=== PATIENT | male | born 1940 | race Caucasian/White ===

== ENCOUNTER 2022-08-30 04:53 | Inpatient (IN) | payer MEDICARE, BC ==
[~2022-08-30] VITALS: Ht 177.8 cm; Wt 113.4 kg
--- NOTE | 2022-08-30 05:00 | NUR ---
Pt is noted responsive but forgetful as she is brought in by ems due to Mechanical Fall at home as he was unable to pickup himselfg back up afterwords. Pt has a history off stroke and currently has COVID19. Pt care continue as awaits MD orders.
[2022-08-30] MEDS ORDERED: TERA5CAP4 PO (05:07)
[2022-08-30] MEDS ORDERED: LOSA25TA27 PO (05:07)
[2022-08-30] MEDS ORDERED: AMLO-212 PO (05:07)
[2022-08-30] MEDS ORDERED: LEVO25TA9 PO (05:07)
[2022-08-30] MEDS ORDERED: ATOR10TA PO (05:07)
[2022-08-30] MEDS ORDERED: ALLO100T56 PO (05:07)
[2022-08-30] MEDS ORDERED: CLOP75TA33 PO (05:07)
[2022-08-30] MEDS ORDERED: ASPI81TA31 PO (05:07)
[2022-08-30] MEDS ORDERED: TDAP DIPH,PERTUSS,TET VAC/PF 0.5 ML DISP.SYRIN IM ONE ×2 (05:13→05:15)
[2022-08-30 05:22] LABS: HEMATOCRIT 42.1 % (36.7-47.1); MEAN CORPUSCULAR HEMOGLOBIN 31.5 uug (23.8-33.4); MEAN CORPUSCULAR VOLUME 92.8 fL (73.0-96.2); PLATELET COUNT (AUTO) 113 K/uL (152-348)
[2022-08-30 05:47] LABS: ALANINE AMINOTRANSFERASE 28 U/L (16-63); ALKALINE PHOSPHATASE 84 U/L (50-136); ASPARTATE AMINOTRANSFERASE 30 U/L (15-37); BILIRUBIN,DIRECT 0.3 mg/dL (0.0-0.2); CARBON DIOXIDE 24 mmol/L (21-32); CHLORIDE 100 mmol/L (98-107); CREATININE 1.9 mg/dL (0.6-1.3); POTASSIUM 3.4 mmol/L (3.5-5.1); UREA NITROGEN, BLOOD 22 mg/dL (7-18)
--- NOTE | 2022-08-30 06:05 | NUR ---
Pt is noted off the unit to CT.
[2022-08-30] MEDS ORDERED: ENOXAPARIN SODIUM 100 MG/ML DISP.SYRIN SQ ONE ×2 (06:15→08:00)
--- NOTE | 2022-08-30 06:25 | NUR ---
Pt is noted back from CT . Pt care continue.
--- NOTE | 2022-08-30 07:10 | NUR ---
Patient is resting comfortably in bed with eyes closed, NAD noted-
--- NOTE | 2022-08-30 07:23 | NUR ---
Pt care continue as report is given to the AM receiving nurse.
--- NOTE | 2022-08-30 08:10 | NUR ---
Breakfast tray provided, ate w/ good appettite. Paged Dr Soria for admit. Awaiting call back.
[2022-08-30] MEDS ORDERED: ASPIRIN 81 MG TAB.CHEW PO ONE (08:15)
[2022-08-30] MEDS ORDERED: ASPIRIN 81 MG TAB.CHEW ONE (08:17)
[2022-08-30] MEDS ORDERED: ENOXAPARIN SODIUM 80 MG/0.8 ML DISP.SYRIN SQ ONE (08:17)
[2022-08-30] MEDS ORDERED: ENOXAPARIN SODIUM 30 MG/0.3 ML DISP.SYRIN ONE (08:17)
--- NOTE | 2022-08-30 09:22 | NUR ---
Dr Waters spoke to Dr Soria for TELE admit.
--- NOTE | 2022-08-30 10:05 | NUR ---
PATIENT RECEIVED FROM ED BY JOHN TO ROOM 324 WITH DX OF POSITIVE COVID AND ELEVATED TROPONIN PLACED INTO BED FIXED AND MADE COMFORTABLE PATIENT IS VERY QUIET BUT IS ALERT FORGETFUL AND COOPERATIVE HE IS ON O2 AT 2L/M BY NASAL CANULA WITH NO SOB AT THIS TIME RIGHT FOREARM WITH HEPLOCK INTACT WITH NO S/S OF INFILTERATION AT THIS TIME.ORIENTED TO ROOM AND FACILITY PROTOCOL ON COVID ISOLATION AT THIS TIME EDUCATED AND INSTRUCTED ON COVID ISOLATION AND HE EXPRESSED UNDERSTANDING.
[2022-08-30 10:35] VITALS: BP 102/63; TEMP 97.7; O2SAT 97
[2022-08-30] MEDS ORDERED: MORPHINE SULFATE 2 MG/1 ML DISP.SYRIN IV PRN (11:15)
[2022-08-30] MEDS ORDERED: TEMAZEPAM 15 MG CAPSULE PO PRN (11:15)
[2022-08-30] MEDS ORDERED: ONDANSETRON 4 MG/2 ML VIAL IV PRN (11:15)
[2022-08-30] MEDS ORDERED: ACETAMINOPHEN 325 MG TABLET PO PRN (11:15)
[2022-08-30] MEDS ORDERED: TEMAZEPAM 7.5 MG CAPSULE PO PRN (12:15)
[2022-08-30] MEDS: DEXAMETHASONE 4 MG TABLET PO SCH (14:15)
[2022-08-30] MEDS: POTASSIUM CHLORIDE 20 MEQ in IV 1/2NS 1000 ML 1,000 ML IV PRN (14:17)
[2022-08-30] MEDS ORDERED: REMDESIVIR (CHARGED) 200 MG in IV NORMAL SALINE 210 ML IV ONE (16:00)
--- NOTE | 2022-08-30 16:34 | NUR ---
REMDESIVIR STATED ORDERED WITH NO ADVERSE OR ALLERGIC REACTIONS AT THIS TIME.
[2022-08-30 16:52] VITALS: BP 152/86; TEMP 97.9; O2SAT 98
[2022-08-30] MEDS ORDERED: LOSA100T31 PO (17:14)
[2022-08-30] MEDS ORDERED: LEVO125T8 PO (17:15)
[2022-08-30] MEDS ORDERED: ALLO300T2 PO (17:16)
[2022-08-30] MEDS ORDERED: ATOR40TA PO (17:23)
[2022-08-30 17:34] VITALS: BP 141/67; TEMP 97.1; O2SAT 97
--- NOTE | 2022-08-30 18:00 | NUR ---
REMAIN ON COVID ISOLATION ORDERED WITH O2 WITH NO SOB AT THIS TIME.
--- NOTE | 2022-08-30 19:30 | NUR ---
Received patient on bed in upright position. AAOX4. 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 Denies any pain or SOB. No coughing noted. COVID precaution observe. IV site on right FA intact and patent. IVF infusing. Safety measure initiated and call light within reached.
[2022-08-30] MEDS: ATORVASTATIN 40 MG TABLET PO SCH (20:41)
[2022-08-30] MEDS: DOCUSATE SODIUM 100 MG CAPSULE PO SCH (20:41)
[2022-08-30] MEDS: TERAZOSIN 5 MG CAPSULE PO SCH (20:42)
[2022-08-30] MEDS ORDERED: ALLOPURINOL 300 MG TABLET PO SCH (21:00)
[2022-08-30] MEDS ORDERED: ATORVASTATIN 10 MG TABLET PO SCH (21:00)
[2022-08-30] MEDS ORDERED: DOCUSATE SODIUM 250 MG CAPSULE PO SCH (21:00)
[2022-08-30 21:21] VITALS: BP 162/96; TEMP 98; O2SAT 98
[2022-08-31 00:16] VITALS: BP 152/86; TEMP 98.4; O2SAT 98
[2022-08-31] MEDS: POTASSIUM CHLORIDE 20 MEQ in IV 1/2NS 1000 ML 1,000 ML IV PRN ×2 (03:37→17:06)
[2022-08-31] MEDS: PANTOPRAZOLE SODIUM 40 MG TABLET.DR PO SCH (06:04)
[2022-08-31] MEDS: LEVOTHYROXINE SODIUM 125 MCG TABLET PO SCH (06:04)
--- NOTE | 2022-08-31 06:33 | NUR ---
Patient with sporadic cough, unable to expectorate any phlegm at this time. Remains on O2 at 2LPM via NC in place. IVF continue to infuse. Needs attended to and met. COVID precaution maintained. Safety measure maintained and call light within reached.
--- NOTE | 2022-08-31 06:49 | NUR ---
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
[2022-08-31 06:55] LABS: HEMATOCRIT 41.7 % (36.7-47.1); MEAN CORPUSCULAR HEMOGLOBIN 31.6 uug (23.8-33.4); MEAN CORPUSCULAR VOLUME 92.5 fL (73.0-96.2); PLATELET COUNT (AUTO) 125 K/uL (152-348)
[2022-08-31 07:21] LABS: THYROID STIMULATING HORMONE 0.209 mIU/mL (0.358-3.740)
[2022-08-31 07:36] LABS: ALANINE AMINOTRANSFERASE 24 U/L (16-63); ALKALINE PHOSPHATASE 77 U/L (50-136); ASPARTATE AMINOTRANSFERASE 25 U/L (15-37); BILIRUBIN,TOTAL 0.5 mg/dL (0.2-1.0); CARBON DIOXIDE 23 mmol/L (21-32); CHLORIDE 103 mmol/L (98-107); CHOLESTEROL 120 mg/dL (<200); CREATININE 1.8 mg/dL (0.6-1.3); FERRITIN 209 ng/mL (26-388); HDL CHOLESTEROL 51 mg/dL (40-60); LACTATE DEHYDROGENASE 143 U/L (85-227); MAGNESIUM 1.9 mg/dL (1.8-2.4); PHOSPHOROUS 4.4 mg/dL (2.5-4.9); POTASSIUM 4.3 mmol/L (3.5-5.1); TOTAL PROTEIN, SERUM 7.6 g/dL (6.4-8.2); TRIGLYCERIDES 67 MG/DL (30-150); UREA NITROGEN, BLOOD 29 mg/dL (7-18)
[2022-08-31] MEDS ORDERED: LEVOTHYROXINE SODIUM 25 MCG TABLET PO SCH (09:00)
[2022-08-31] MEDS: DEXAMETHASONE 4 MG TABLET PO SCH (09:18)
[2022-08-31] MEDS: ASPIRIN 81 MG TAB.CHEW PO SCH (09:18)
[2022-08-31] MEDS: ALLOPURINOL 100 MG TABLET PO SCH (09:18)
[2022-08-31] MEDS: CLOPIDOGREL 75 MG TABLET PO SCH (09:18)
--- NOTE | 2022-08-31 09:36 | NUR ---
PATIENT SEEN AND EXAMINED BY DR MORAN WITH NEW ORDERS AND NOTED.
[2022-08-31 13:32] VITALS: BP 128/82; TEMP 98.5; O2SAT 96
--- NOTE | 2022-08-31 15:48 | NUR ---
GETTING OUT OF BED SOMEWHAT DISORIENTED NEEDING FREQUENT REDIRECTION PULLED OUT HIS HEPLOCK ATTEMPTED TO REINSERT MULTIPLE ATTEMPTS BUT UNABLE DR SHANIQUE CARCAMO NOTIFIED WITH ORDER FOR MID LINE INSERTION AND NOTED.MID LINE RN HERE AND INSERTED MIDLINE LEFT UPPER ARM TOLERATED PROCEDURE WELL.
[2022-08-31 16:00] VITALS: BP 129/79; TEMP 98; O2SAT 95
[2022-08-31] MEDS: REMDESIVIR (CHARGED) 100 MG in IV NORMAL SALINE 100 ML IV SCH (16:21)
[2022-08-31 17:20] VITALS: O2SAT 96
--- NOTE | 2022-08-31 19:30 | NUR ---
Received patient on bed in upright position. AAOX3-4, with occasional confusion. 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 Denies any pain or SOB. No coughing noted. COVID precaution observe. Midline on left upper arm intact and patent. IVF infusing. Safety measure initiated and call light within reached.
[2022-08-31] MEDS: ATORVASTATIN 40 MG TABLET PO SCH (20:34)
[2022-08-31] MEDS: TERAZOSIN 5 MG CAPSULE PO SCH (20:42)
[2022-08-31] MEDS: DOCUSATE SODIUM 100 MG CAPSULE PO SCH (20:42)
[2022-08-31 21:00] VITALS: O2SAT 95
[2022-08-31 21:28] LABS: *BILIRUBIN,URIN NEGATIVE (NEGATIVE); *BLOOD, URINE NEGATIVE (NEGATIVE); *CLARITY,URINE CLEAR (CLEAR); *COLOR,URINE YELLOW (YELLOW); *KETONES,URINE NEGATIVE (NEGATIVE); *UROBILINOGEN,URINE 0.2 E.U./dl (NORMAL); LEUKOCYTE ESTERASE ,URINE NEGATIVE (NEGATIVE); NITRITE, URINE NEGATIVE (NEGATIVE); PH,URINE 5.5 (5.0-8.0); UGLUCOSE NEGATIVE (NEGATIVE)
[2022-08-31 21:29] LABS: RBC,URINE 0-3 /HPF (0-3); WBC,URINE 0-3 /HPF (0-3)
[2022-08-31 21:37] LABS: *CREATININE,URINE 119.3 mg/dL (30-125); *URINE TOTAL PROTEIN RANDOM 29.1 mg/dL (<150/24HR)
[2022-08-31 22:43] VITALS: BP 166/95; TEMP 97.9; O2SAT 96
[2022-09-01 04:00] VITALS: BP 152/95; TEMP 98.2; O2SAT 96
--- NOTE | 2022-09-01 06:00 | NUR ---
Patient with occasional confusion. O2 sat at 96 on RA. Denies any pain or SOB. No coughing noted. COVID precaution maintained. Midline on left upper arm intact and patent. IVF continue to infusing. Safety measure maintained and call light within reached.
[2022-09-01] MEDS: LEVOTHYROXINE SODIUM 125 MCG TABLET PO SCH (06:13)
[2022-09-01] MEDS: PANTOPRAZOLE SODIUM 40 MG TABLET.DR PO SCH (07:16)
[2022-09-01 07:18] LABS: HEMATOCRIT 39.9 % (36.7-47.1); MEAN CORPUSCULAR HEMOGLOBIN 30.9 uug (23.8-33.4); MEAN CORPUSCULAR VOLUME 92.3 fL (73.0-96.2); PLATELET COUNT (AUTO) 128 K/uL (152-348)
[2022-09-01 07:54] LABS: ALANINE AMINOTRANSFERASE 21 U/L (16-63); ALKALINE PHOSPHATASE 65 U/L (50-136); ASPARTATE AMINOTRANSFERASE 33 U/L (15-37); BILIRUBIN,TOTAL 0.4 mg/dL (0.2-1.0); CARBON DIOXIDE 21 mmol/L (21-32); CHLORIDE 103 mmol/L (98-107); CREATININE 1.7 mg/dL (0.6-1.3); MAGNESIUM 2.3 mg/dL (1.8-2.4); PHOSPHOROUS 4.1 mg/dL (2.5-4.9); POTASSIUM 4.7 mmol/L (3.5-5.1); TOTAL PROTEIN, SERUM 7.4 g/dL (6.4-8.2); UREA NITROGEN, BLOOD 37 mg/dL (7-18)
[2022-09-01 08:16] LABS: CREATINE KINASE, TOTAL 509 U/L (39-308)
[2022-09-01 08:30] VITALS: BP 147/82; TEMP 97.8
--- NOTE | 2022-09-01 08:30 | NUR ---
Pt sitting on bedside,[place], Alert and oriented x3, VSS, O2 saturation 97% on RA. Per Pt has been off all night. PRETTY midline catheter occluded, unable to flush. New 22g HL started ledt cassy arm.
[2022-09-01] MEDS: ASPIRIN 81 MG TAB.CHEW PO SCH (08:55)
[2022-09-01] MEDS: DEXAMETHASONE 4 MG TABLET PO SCH (08:56)
[2022-09-01] MEDS: ALLOPURINOL 100 MG TABLET PO SCH (08:56)
[2022-09-01] MEDS: CLOPIDOGREL 75 MG TABLET PO SCH (08:57)
[2022-09-01] MEDS: POTASSIUM CHLORIDE 20 MEQ in IV 1/2NS 1000 ML 1,000 ML IV PRN (09:17)
--- NOTE | 2022-09-01 11:45 | NUR ---
Sleeping on/off, independent in position changes, IVF infusing PIV left arm. Spoke with via phone when at bedside, updated on Pts condition, verbalized understanding.
--- NOTE | 2022-09-01 14:15 | NUR ---
VSS tele SR with BBB occasional PVC. Per pt denies and sob, remains on RA with saturation 96-97%
[2022-09-01 15:30] VITALS: BP 141/77; TEMP 97.8; O2SAT 95
[2022-09-01] MEDS: REMDESIVIR (CHARGED) 100 MG in IV NORMAL SALINE 100 ML IV SCH (15:38)
--- NOTE | 2022-09-01 18:08 | NUR ---
VSS tolerated Remdesivir infusion with any noted side effects. Pt sitting at bedside watching TV and eating dinner, independent in room remains on RA with saturation 97%
[2022-09-01 20:00] VITALS: BP 153/96; TEMP 97.4; O2SAT 96
[2022-09-01] MEDS: ATORVASTATIN 40 MG TABLET PO SCH (21:01)
[2022-09-01] MEDS: TERAZOSIN 5 MG CAPSULE PO SCH (21:01)
[2022-09-01] MEDS: DOCUSATE SODIUM 100 MG CAPSULE PO SCH (21:01)
[2022-09-02] VITALS (8 sets, daily range): BP systolic 147–185; BP diastolic 56–96; TEMP 97.5–98.6; O2SAT 94–99
[2022-09-02] MEDS: POTASSIUM CHLORIDE 20 MEQ in IV 1/2NS 1000 ML 1,000 ML IV PRN (02:00)
--- NOTE | 2022-09-02 05:16 | NUR ---
END OF SHIFT REPORT Patient rested well in between care VS stable,in room air and afebrile, IVF infussing for remdesevir later, hourly rounding done, continue to monitor, continue plan of care.
[2022-09-02] MEDS: PANTOPRAZOLE SODIUM 40 MG TABLET.DR PO SCH (06:18)
[2022-09-02] MEDS: LEVOTHYROXINE SODIUM 125 MCG TABLET PO SCH (06:18)
[2022-09-02] MEDS: hydrALAZINE HCL 25 MG TABLET PO PRN ×4 (06:46→21:33)
--- NOTE | 2022-09-02 06:57 | NUR ---
BP 187/105; referred to DR. Recinos; hydralazine ordered and given to patient; will endorse.
[2022-09-02 06:58] LABS: HEMATOCRIT 41.6 % (36.7-47.1); MEAN CORPUSCULAR HEMOGLOBIN 30.9 uug (23.8-33.4); MEAN CORPUSCULAR VOLUME 93.7 fL (73.0-96.2); PLATELET COUNT (AUTO) 131 K/uL (152-348)
[2022-09-02 07:57] LABS: ALANINE AMINOTRANSFERASE 24 U/L (16-63); ALKALINE PHOSPHATASE 64 U/L (50-136); ASPARTATE AMINOTRANSFERASE 29 U/L (15-37); BILIRUBIN,DIRECT 0.1 mg/dL (0.0-0.2); BILIRUBIN,TOTAL 0.5 mg/dL (0.2-1.0); CARBON DIOXIDE 24 mmol/L (21-32); CHLORIDE 104 mmol/L (98-107); CREATININE 1.6 mg/dL (0.6-1.3); POTASSIUM 4.3 mmol/L (3.5-5.1); TOTAL PROTEIN, SERUM 7.1 g/dL (6.4-8.2); UREA NITROGEN, BLOOD 38 mg/dL (7-18)
[2022-09-02] MEDS ORDERED: AMLODIPINE 5 MG TABLET PO SCH (09:00)
[2022-09-02] MEDS: DEXAMETHASONE 4 MG TABLET PO SCH (09:04)
[2022-09-02] MEDS: ASPIRIN 81 MG TAB.CHEW PO SCH (09:04)
[2022-09-02] MEDS: ALLOPURINOL 100 MG TABLET PO SCH (09:04)
[2022-09-02] MEDS: CLOPIDOGREL 75 MG TABLET PO SCH (09:05)
[2022-09-02 11:07] LABS: A/G RATIO 0.7 (0.7-1.7); ALBUMIN 2.7 g/dL (2.9-4.4); ALPHA-1-GLOBULIN 0.3 g/dL (0.0-0.4); ALPHA-2-GLOBULIN 0.9 g/dL (0.4-1.0); BETA GLOBULIN 0.8 g/dL (0.7-1.3); GAMMA GLOBULIN 1.9 g/dL (0.4-1.8); GLOBULIN, TOTAL 3.9 g/dL (2.2-3.9); M-SPIKE 1.4 g/dL (Not Observed)
--- NOTE | 2022-09-02 14:46 | NUR ---
Received patient lying in bed awake, alert and oriented with ongoing IVF 0.45NS + 20meq KCL @ 75cc/hr infusing well In no acute distress, no SOB, no complain Vital signs taken and recorded, provided safety measures Due medications given On cardiac diet, patient tolerated well Seen and examined by Nichole Bucio WORK STATION SUPPORT SPECIALIST with orders made and carried out Observed accordingly, needs attended
[2022-09-02] MEDS: REMDESIVIR (CHARGED) 100 MG in IV NORMAL SALINE 100 ML IV SCH (15:53)
--- NOTE | 2022-09-02 16:07 | NUR ---
Patient has high blood pressure 174/91, Hydralazine 25mg PO given as ordered, patient has no complain, no SOB not in distress. Continue monitoring and safety measures.
[2022-09-02] MEDS: ATORVASTATIN 40 MG TABLET PO SCH (21:29)
[2022-09-02] MEDS: TERAZOSIN 5 MG CAPSULE PO SCH (21:32)
[2022-09-02] MEDS: DOCUSATE SODIUM 100 MG CAPSULE PO SCH (21:32)
[2022-09-03 00:20] VITALS: BP 146/95; TEMP 98.3; O2SAT 97
[2022-09-03 04:38] VITALS: BP 164/89; TEMP 97.6; O2SAT 94
[2022-09-03] MEDS: PANTOPRAZOLE SODIUM 40 MG TABLET.DR PO SCH (06:07)
[2022-09-03] MEDS: LEVOTHYROXINE SODIUM 125 MCG TABLET PO SCH (06:07)
[2022-09-03] MEDS: hydrALAZINE HCL 25 MG TABLET PO PRN (06:07)
[2022-09-03 07:16] LABS: HEMATOCRIT 40.7 % (36.7-47.1); MEAN CORPUSCULAR HEMOGLOBIN 31.2 uug (23.8-33.4); MEAN CORPUSCULAR VOLUME 92.4 fL (73.0-96.2); PLATELET COUNT (AUTO) 117 K/uL (152-348)
--- NOTE | 2022-09-03 07:19 | NUR ---
REPORT GIVEN TO NOHEMI MCCLELLAN
[2022-09-03 07:27] LABS: ALANINE AMINOTRANSFERASE 26 U/L (16-63); ALKALINE PHOSPHATASE 64 U/L (50-136); ASPARTATE AMINOTRANSFERASE 28 U/L (15-37); BILIRUBIN,DIRECT 0.2 mg/dL (0.0-0.2); BILIRUBIN,TOTAL 0.5 mg/dL (0.2-1.0); CARBON DIOXIDE 27 mmol/L (21-32); CHLORIDE 104 mmol/L (98-107); CREATININE 1.4 mg/dL (0.6-1.3); TOTAL PROTEIN, SERUM 6.9 g/dL (6.4-8.2); UREA NITROGEN, BLOOD 34 mg/dL (7-18)
--- NOTE | 2022-09-03 07:30 | NUR ---
REPORT RECEIVED FROM NIGHT NURSE: 1) MAINTAINING A SAFE ENVIRONMENT:Bed alarm activated, in low position, side rails x2 up, call beth within reach, and floor clear of clutter. 2) BREATHING: No sign of SOB, cyanosis, no sign of distress. On RA - SATS in the high 90s. 3) COMMUNICATION:Patient is able to communicate his needs. 4) EATING & DRINKING:Patient is a self feeder. 5) ELIMINATION: Patient has BRP - steady gait. 6) CONTROLLING BODY TEMPERATURE: Patient is apyrexial - no signs of sepsis observed. 7) HYGIENE: Needs minimum assistance. 8) MOBILIZING: Bed rest, due to condition. 9) SLEEPING: No issues - sleeping at the time of this report. 10)PLAN: (i) Maintaining Safety - SOB, Temperature within normally limits. (ii) Ensure Oxygen saturation within normal limits. (iii) Assistance to be provided as needed.
--- NOTE | 2022-09-03 08:54 | NUR ---
EATING & DRINKING:- Am breakfast taken 100% - self feeder.
[2022-09-03] MEDS ORDERED: AMLODIPINE 10 MG TABLET PO SCH (09:00)
[2022-09-03] MEDS ORDERED: AMLODIPINE 5 MG TABLET PO SCH (09:00)
--- NOTE | 2022-09-03 09:00 | NUR ---
AM MEDICATION ADMINISTERED PRESCRIBED.
[2022-09-03] MEDS: ASPIRIN 81 MG TAB.CHEW PO SCH (09:11)
[2022-09-03] MEDS: ALLOPURINOL 100 MG TABLET PO SCH (09:11)
[2022-09-03] MEDS: CLOPIDOGREL 75 MG TABLET PO SCH (09:11)
--- NOTE | 2022-09-03 11:30 | NUR ---
ROUNDING: Patient asleep comfortably in bed, no sign of distress, or SOB observed.
[2022-09-03 11:51] VITALS: BP 145/78; TEMP 98.2; O2SAT 95
[2022-09-03] MEDS ORDERED: PANT40TA49 PO (12:13)
[2022-09-03] MEDS ORDERED: AMLO10TA59 PO (12:13)
--- NOTE | 2022-09-03 13:04 | NUR ---
ROUNDIN) Patient keen to go home. 2) Advised that after last dose of Remdesivir is administered.
--- NOTE | 2022-09-03 13:45 | NUR ---
DISCHARGE: 1) PAPERWORK COMPLETED AND SIGNED. 2) will pick patient up. 3) Iv access removed, pressure applied and no bleeding observed. 4) ID removed. 5) Patient clinically stable on discharge.
== END 2022-09-03 13:45 | disposition home or self-care (01) | DRG 177 ==
LOC: ER 04:57 → TELE3 09:32
PROVIDERS: ADMIT Internal Medicine; ATTEND Internal Medicine
PROC: XW033E5 Introduction of Remdesivir Anti-infective into Peripheral Vein, Percutaneous Approach, New Technology Group 5 (ICD-10-PCS; principal; 2022-08-30)
PROC: 05HC33Z Insertion of Infusion Device into Left Basilic Vein, Percutaneous Approach (ICD-10-PCS; 2022-08-31)
DX: U07.1 COVID-19 (principal); G93.41 Metabolic encephalopathy; I21.A1 Myocardial infarction type 2; J96.01 Acute respiratory failure with hypoxia; N17.0 Acute kidney failure with tubular necrosis; D68.59 Other primary thrombophilia; F01.50 Vascular dementia, unspecified severity, without behavioral disturbance, psychotic disturbance, mood disturbance, and anxiety; E03.9 Hypothyroidism, unspecified; M10.9 Gout, unspecified; Z74.09 Other reduced mobility; Z86.73 Personal history of transient ischemic attack (TIA), and cerebral infarction without residual deficits; Z79.02 Long term (current) use of antithrombotics/antiplatelets; S80.211A Abrasion, right knee, initial encounter; W06.XXXA Fall from bed, initial encounter; Y92.013 Bedroom of single-family (private) house as the place of occurrence of the external cause; E87.6 Hypokalemia; I10 Essential (primary) hypertension; D69.6 Thrombocytopenia, unspecified; N40.0 Benign prostatic hyperplasia without lower urinary tract symptoms; M17.11 Unilateral primary osteoarthritis, right knee; I45.10 Unspecified right bundle-branch block; E66.9 Obesity, unspecified; Z68.35 Body mass index [BMI] 35.0-35.9, adult
CPT/HCPCS: 36415; 70450; 71045; 72170; 76770; 83615; 83735; 83970; 84100; 84155; 84165; 84300; 84443; 84484; 85025; 85610; 86140; 86803; 87040; 87806; 90715; 93005; A4663; G0378; J0248; J1650; J3480; J7040; J7060; J8499; J8540